=== PATIENT | female | born 1990 | race Caucasian/White ===

== ENCOUNTER 2023-01-22 11:19 | Inpatient (IN) | payer OTHER ==
[~2023-01-22] VITALS: Ht 160 cm; Wt 75.0 kg
[~2023-01-22 11:19] MED LIST: ACETAMINOPHEN/ISO-OSM 1000 MG/100 ML BOTTLE IV ONE; BUPIVACAINE HCL/PF 0.5% 30 ML VIAL ONE; EPINEPHrine 1:1,000 [1 MG/ML] VIAL ONE; ETHYL ALCOHOL 62% ANTISEPTIC NASAL SANITIZER 0.6 ML AMPUL NASAL ONE; LIDOCAINE/PF 1% 30 ML VIAL ONE; RINGERS SOLUTION,LACTATED 0 ML IV ONE; RINGERS SOLUTION,LACTATED 1,000 ML IV ONE; SUGAMMADEX SODIUM 200 MG/2 ML VIAL IVP ONE
[2023-01-22] MEDS ORDERED: CeFAZolin SODIUM 1 GM VIAL IVP ONE (12:00)
[2023-01-22] MEDS ORDERED: FentaNYL CITRATE PF 100 MCG/2 ML VIAL IVP ONE (12:00)
[2023-01-22] MEDS ORDERED: NALOXONE HCL 0.4 MG/ML VIAL IVP ONE (12:00)
[2023-01-22] MEDS ORDERED: ROCURONIUM BROMIDE 10 MG/ML 5 ML VIAL IVP ONE (12:00)
[2023-01-22] MEDS ORDERED: METOCLOPRAMIDE HCL 5 MG/ML 2 ML VIAL IVP ONE (12:00)
[2023-01-22] MEDS ORDERED: LIDOCAINE/PF 2% 5 ML SYRINGE IVP ONE (12:00)
[2023-01-22] MEDS ORDERED: ONDANSETRON HCL 4 MG/2 ML VIAL IVP ONE (12:00)
[2023-01-22] MEDS ORDERED: PROPOFOL 1% 20 ML VIAL IVP ONE (12:00)
[2023-01-22] MEDS ORDERED: MIDAZOLAM HCL 2 MG/2 ML VIAL IVP ONE (12:00)
[2023-01-22] MEDS ORDERED: KETOROLAC TROMETHAMINE 60 MG/2 ML VIAL IM ONE (12:00)
[2023-01-22] MEDS ORDERED: RINGERS SOLUTION,LACTATED 1,000 ML IV ONE ×2 (12:19→14:02)
[2023-01-22] MEDS ORDERED: CHLORHEXIDINE GLUCONATE 2% TOWELETTE [2'S/6'S] TP ONE (13:30)
[2023-01-22] MEDS ORDERED: BUPIVACAINE HCL/PF 0.25% 30 ML VIAL ONE (14:04)
[2023-01-22] MEDS ORDERED: BUPIVACAINE LIPOSOME/PF 1.3%-13.3MG/ML SUSPENSION 20 ML VIAL INJ ONE (14:15)
[2023-01-22] MEDS ORDERED: FentaNYL CITRATE PF 100 MCG/2 ML VIAL IVP PRN (17:45)
[2023-01-22] MEDS ORDERED: HYDROmorphone HCL 2 MG/ML SYRINGE IVP PRN (17:45)
[2023-01-22] MEDS ORDERED: MEPERIDINE-PF 25 MG/ML VIAL IVP PRN (17:45)
[2023-01-22] MEDS ORDERED: HYDROmorphone HCL 2 MG/ML SYRINGE ONE (17:55)
[2023-01-22] MEDS: OXYGEN THERAPY IH SCH (20:00)
[2023-01-22 21:49] VITALS: BP 121/66; PULSE 86; RESP 18; TEMP 98.1
[2023-01-22] MEDS ORDERED: CeFAZolin 2 GM/DEXTROSE 50 ML IV SCH (22:00)
[2023-01-22] MEDS ORDERED: CHLORHEXIDINE GLUCONATE 2% TOWELETTE [2'S/6'S] TP SCH (22:00)
[2023-01-22] MEDS: HYDROmorphone HCL 2 MG/ML SYRINGE IVP PRN (22:21)
[2023-01-22] MEDS ORDERED: SODIUM CHLORIDE 0.9% 250 ML IV ONE (22:37)
[2023-01-23 00:56] VITALS: BP 109/60; PULSE 109; RESP 18; TEMP 97.5
[2023-01-23] MEDS: HYDROmorphone HCL 2 MG/ML SYRINGE IVP PRN ×4 (03:08→17:58)
[2023-01-23 04:25] VITALS: BP 110/53; PULSE 96; RESP 19; TEMP 97.9
[2023-01-23 08:00] VITALS: BP 114/54; PULSE 90; RESP 18; TEMP 98
[2023-01-23] MEDS: OXYGEN THERAPY IH SCH ×2 (08:00→20:00)
[2023-01-23] MEDS: ASPIRIN 81 MG CHEWABLE TABLET PO SCH (09:13)
[2023-01-23 11:06] VITALS: BP 111/69; PULSE 86; RESP 18; TEMP 98
[2023-01-23] MEDS ORDERED: ACETAMINOPHEN 325 MG TABLET PO PRN (19:00)
[2023-01-23 19:51] VITALS: BP 115/60; PULSE 88; RESP 18; TEMP 98.7
[2023-01-23] MEDS: HYDROCODONE/ACETAMINOPHEN 10-325 MG TABLET PO PRN (21:41)
[2023-01-23 23:21] VITALS: BP 106/52; PULSE 92; RESP 18; TEMP 98.1
[2023-01-24] MEDS: HYDROCODONE/ACETAMINOPHEN 10-325 MG TABLET PO PRN ×4 (03:18→17:51)
[2023-01-24 04:08] VITALS: BP 103/56; PULSE 78; RESP 18; TEMP 98.6
[2023-01-24] MEDS: ASPIRIN 81 MG CHEWABLE TABLET PO SCH (07:58)
[2023-01-24] MEDS: OXYGEN THERAPY IH SCH ×2 (07:59→20:00)
[2023-01-24 10:12] VITALS: BP 106/76; PULSE 81; RESP 18; TEMP 98.5
[2023-01-24] MEDS ORDERED: OxyCODONE HCL/ACETAMINOPHEN 5-325 MG TABLET PO ONE (11:15)
[2023-01-24 12:08] LABS: BASOPHILS % (AUTO) 0.7 % (0.0-2.0); EOSINOPHILS % (AUTO) 1.7 % (1.0-6.0); HEMATOCRIT 30.1 % (36-46); LYMPHOCYTES # (AUTO) 2.3 K/uL (1.0-4.8); LYMPHOCYTES % (AUTO) 35.8 % (22.0-44.0); MEAN CORPUSCULAR HEMOGLOBIN 27.9 pg (26.0-34.0); MEAN CORPUSCULAR HGB CONC 33.2 G/dL (31.0-37.0); MEAN CORPUSCULAR VOLUME 84 fL (80-100); MONOCYTES # (AUTO) 0.5 K/uL (0.1-1.0); MONOCYTES % (AUTO) 7.3 % (2.0-9.0); NEUTROPHILS # (AUTO) 3.4 K/uL (1.8-7.7); NEUTROPHILS % (AUTO) 54.5 % (40.0-70.0); PLATELET COUNT (AUTO) 221 K/uL (150-450); RED BLOOD CELL COUNT(AUTO) 3.58 MIL/uL (4.00-5.20); RED CELL DISTRIBUTION WIDTH 15.3 % (11.5-14.5); WHITE BLOOD COUNT (AUTO) 6.3 K/uL (4.5-11.0)
[2023-01-24 12:15] LABS: ANION GAP 4 mmol/L (8-16); CALCIUM, TOTAL 8.3 mg/dL (8.8-10.5); CARBON DIOXIDE 29 mmol/L (22-29); CHLORIDE 106 mmol/L (98-107); CREATININE 0.52 mg/dL (0.60-1.30); GLOMERULAR FILTR. RATE CALC > 60 mL/min (>60); GLUCOSE,RANDOM 91 mg/dL (70-110); POTASSIUM 3.8 mmol/L (3.5-5.1); SODIUM SERUM 139 mmol/L (136-145); UREA NITROGEN, BLOOD 7 mg/dL (7-18)
[2023-01-24 12:21] LABS: ALANINE AMINOTRANSFERASE 15 U/L (12-78); ALBUMIN 2.8 g/dL (3.4-5.0); ALKALINE PHOSPHATASE 52 U/L (46-116); ASPARTATE AMINOTRANSFERASE 16 U/L (15-37); BILIRUBIN,TOTAL 0.3 mg/dL (0.1-1.0); TOTAL PROTEIN, SERUM 6.4 g/dL (6.4-8.2)
[2023-01-24 13:27] VITALS: BP 105/58; PULSE 85; RESP 18; TEMP 98.1
[2023-01-24 16:47] VITALS: BP 104/45; PULSE 95; RESP 18; TEMP 98.1
[2023-01-24 18:22] VITALS: BP 118/68; PULSE 82; RESP 19; TEMP 98.4
[2023-01-24 19:44] VITALS: BP 102/65; PULSE 86; RESP 18; TEMP 98.9
[2023-01-24] MEDS ORDERED: DEXAMETHASONE SOD PHOS 10 MG/ML VIAL IVP ONE (20:00)
[2023-01-24] MEDS: GABAPENTIN 300 MG CAPSULE PO SCH (20:44)
[2023-01-25 03:37] VITALS: BP 117/71; PULSE 97; RESP 20; TEMP 97.7
[2023-01-25] MEDS: HYDROCODONE/ACETAMINOPHEN 10-325 MG TABLET PO PRN ×5 (03:41→20:38)
[2023-01-25] MEDS: OXYGEN THERAPY IH SCH ×2 (08:00→20:00)
[2023-01-25 09:01] VITALS: BP 106/62; PULSE 98; RESP 20
[2023-01-25] MEDS: GABAPENTIN 300 MG CAPSULE PO SCH ×2 (09:03→20:38)
[2023-01-25] MEDS: ASPIRIN 81 MG CHEWABLE TABLET PO SCH (09:04)
[2023-01-25 15:57] VITALS: BP 98/68; PULSE 104; RESP 20; TEMP 98.1
[2023-01-25 17:25] VITALS: BP 107/62; RESP 20
[2023-01-25 20:44] VITALS: BP 109/64; PULSE 97; RESP 19; TEMP 98.1
[2023-01-26] MEDS: HYDROCODONE/ACETAMINOPHEN 10-325 MG TABLET PO PRN ×4 (01:03→18:40)
[2023-01-26 03:41] VITALS: BP 105/60; PULSE 80; RESP 18; TEMP 97.6
[2023-01-26] MEDS: GABAPENTIN 300 MG CAPSULE PO SCH (08:32)
[2023-01-26] MEDS: ASPIRIN 81 MG CHEWABLE TABLET PO SCH (08:33)
[2023-01-26 09:17] VITALS: BP 86/42; PULSE 91; RESP 18; TEMP 98.6
[2023-01-26] MEDS ORDERED: SODIUM CHLORIDE 0.9% 250 ML IV SCH (10:45)
[2023-01-26 16:01] VITALS: BP 108/77; PULSE 90; RESP 18; TEMP 98.5
== END 2023-01-26 18:42 | DRG 481 ==
LOC: SURGERY 11:19 → 5S 19:00 → 6S 01-24 18:15
PROVIDERS: ADMIT Hospitalist; ATTEND Hospitalist
PROC: 0QQ54ZZ Repair Left Acetabulum, Percutaneous Endoscopic Approach (ICD-10-PCS; 2023-01-22)
PROC: 0SQB4ZZ Repair Left Hip Joint, Percutaneous Endoscopic Approach (ICD-10-PCS; principal; 2023-01-22 13:55)
DX: S73.102A Unspecified sprain of left hip, initial encounter (principal); E44.0 Moderate protein-calorie malnutrition; M70.62 Trochanteric bursitis, left hip; Z79.899 Other long term (current) drug therapy; X58.XXXA Exposure to other specified factors, initial encounter; Y93.89 Activity, other specified; Y92.89 Other specified places as the place of occurrence of the external cause; Y99.8 Other external cause status
CPT/HCPCS: 80053; 84703; 85025; 87081; 97110; 97116; 97161; 97166; 97530; 97535; C9290; J0131; J0171; J0690; J1100; J1170; J1885; J2250; J2310; J2405; J2704; J2765; J3010; J3490; J7030; J7050; J7120; Q9967

== ENCOUNTER 2023-01-26 18:42 | Inpatient (IN) | payer OTHER ==
[~2023-01-26] VITALS: Ht 160 cm; Wt 79.4 kg
[2023-01-26 19:05] VITALS: BP 124/82; PULSE 87; RESP 18; TEMP 98.8; O2SAT 100
[2023-01-26 20:00] VITALS: O2SAT 100
[2023-01-26] MEDS ORDERED: LACTULOSE 20 GM/30 ML SOLUTION UDCUP PO PRN (20:00)
[2023-01-26] MEDS ORDERED: ACETAMINOPHEN 650 MG/20.3 ML SOLUTION UDCUP PO PRN (20:00)
[2023-01-26] MEDS ORDERED: ACETAMINOPHEN 325 MG TABLET PO PRN ×2 (20:00→23:30)
[2023-01-26] MEDS ORDERED: ACETAMINOPHEN 500 MG TABLET PO PRN (20:15)
[2023-01-26] MEDS: DOCUSATE SODIUM 250 MG CAPSULE PO SCH (21:15)
[2023-01-26] MEDS: SENNOSIDES 8.6 MG TABLET PO SCH (21:16)
[2023-01-26] MEDS: GABAPENTIN 300 MG CAPSULE PO SCH (21:17)
[2023-01-26] MEDS: MELATONIN 3 MG TABLET PO PRN (21:18)
[2023-01-26] MEDS: ETHYL ALCOHOL 62% ANTISEPTIC NASAL SANITIZER 0.6 ML AMPUL NASAL SCH (22:13)
[2023-01-27] MEDS ORDERED: INFLUENZA VIRUS VACCINE QVS 2023-24 (6MO+)/PF 60 MCG/0.5 ML SYRINGE IM. ONE (02:30)
[2023-01-27] MEDS: HYDROCODONE/ACETAMINOPHEN 10-325 MG TABLET PO PRN ×3 (06:46→19:42)
[2023-01-27] MEDS: DOCUSATE SODIUM 283 MG/5 ML MINI-ENEMA PR SCH (06:49)
[2023-01-27] MEDS ORDERED: ACETAMINOPHEN 500 MG TABLET PO PRN (07:30)
[2023-01-27 07:39] LABS: BASOPHILS % (AUTO) 0.9 % (0.0-2.0); EOSINOPHILS % (AUTO) 3.3 % (1.0-6.0); HEMATOCRIT 32.1 % (36-46); HEMOGLOBIN 10.5 g/dL (12.0-16.0); LYMPHOCYTES # (AUTO) 3.1 K/uL (1.0-4.8); LYMPHOCYTES % (AUTO) 49.6 % (22.0-44.0); MEAN CORPUSCULAR HEMOGLOBIN 27.4 pg (26.0-34.0); MEAN CORPUSCULAR HGB CONC 32.8 G/dL (31.0-37.0); MEAN CORPUSCULAR VOLUME 84 fL (80-100); MONOCYTES # (AUTO) 0.4 K/uL (0.1-1.0); MONOCYTES % (AUTO) 6.7 % (2.0-9.0); NEUTROPHILS # (AUTO) 2.5 K/uL (1.8-7.7); NEUTROPHILS % (AUTO) 39.5 % (40.0-70.0); PLATELET COUNT (AUTO) 241 K/uL (150-450); RED BLOOD CELL COUNT(AUTO) 3.83 MIL/uL (4.00-5.20); WHITE BLOOD COUNT (AUTO) 6.3 K/uL (4.5-11.0)
[2023-01-27 08:13] LABS: ALANINE AMINOTRANSFERASE 19 U/L (12-78); ALKALINE PHOSPHATASE 56 U/L (46-116); ANION GAP 7 mmol/L (8-16); ASPARTATE AMINOTRANSFERASE 19 U/L (15-37); BILIRUBIN,TOTAL 0.4 mg/dL (0.1-1.0); CALCIUM, TOTAL 8.5 mg/dL (8.8-10.5); CARBON DIOXIDE 28 mmol/L (22-29); CHLORIDE 103 mmol/L (98-107); CREATININE 0.52 mg/dL (0.60-1.30); GLOMERULAR FILTR. RATE CALC > 60 mL/min (>60); GLUCOSE,RANDOM 96 mg/dL (70-110); POTASSIUM 4.1 mmol/L (3.5-5.1); SODIUM SERUM 138 mmol/L (136-145); TOTAL PROTEIN, SERUM 6.6 g/dL (6.4-8.2); UREA NITROGEN, BLOOD 10 mg/dL (7-18)
[2023-01-27] MEDS: ETHYL ALCOHOL 62% ANTISEPTIC NASAL SANITIZER 0.6 ML AMPUL NASAL SCH ×2 (08:25→20:35)
[2023-01-27] MEDS: GABAPENTIN 300 MG CAPSULE PO SCH ×2 (08:25→20:35)
[2023-01-27] MEDS: DOCUSATE SODIUM 250 MG CAPSULE PO SCH ×2 (08:25→20:35)
[2023-01-27] MEDS: ASPIRIN 81 MG CHEWABLE TABLET PO SCH (08:25)
[2023-01-27 10:02] VITALS: BP 107/64; PULSE 88; RESP 18; TEMP 97.7; O2SAT 99
[2023-01-27 11:46] VITALS: O2SAT 99
[2023-01-27 12:10] VITALS: RESP 18
[2023-01-27 19:42] VITALS: BP 109/62; PULSE 80; RESP 18; TEMP 98.5; O2SAT 100
[2023-01-27 20:00] VITALS: O2SAT 100
[2023-01-27] MEDS: MELATONIN 3 MG TABLET PO PRN (20:35)
[2023-01-27] MEDS: SENNOSIDES 8.6 MG TABLET PO SCH (20:35)
[2023-01-28] MEDS: DOCUSATE SODIUM 283 MG/5 ML MINI-ENEMA PR SCH (06:15)
[2023-01-28] MEDS: HYDROCODONE/ACETAMINOPHEN 10-325 MG TABLET PO PRN ×2 (06:15→13:31)
[2023-01-28 08:05] VITALS: BP 107/65; PULSE 76; RESP 18; TEMP 98.1; O2SAT 99
[2023-01-28] MEDS: ETHYL ALCOHOL 62% ANTISEPTIC NASAL SANITIZER 0.6 ML AMPUL NASAL SCH ×2 (08:16→21:50)
[2023-01-28] MEDS: ASPIRIN 81 MG CHEWABLE TABLET PO SCH (08:16)
[2023-01-28] MEDS: GABAPENTIN 300 MG CAPSULE PO SCH ×2 (08:17→21:50)
[2023-01-28] MEDS: DOCUSATE SODIUM 250 MG CAPSULE PO SCH ×2 (08:17→21:50)
[2023-01-28 10:26] VITALS: O2SAT 98
[2023-01-28 20:00] VITALS: BP 107/59; PULSE 89; RESP 19; TEMP 98.4; O2SAT 98
[2023-01-28] MEDS: MELATONIN 3 MG TABLET PO PRN (21:50)
[2023-01-28] MEDS: SENNOSIDES 8.6 MG TABLET PO SCH (21:50)
[2023-01-28 22:08] VITALS: O2SAT 98
[2023-01-29] MEDS: HYDROCODONE/ACETAMINOPHEN 10-325 MG TABLET PO PRN ×2 (05:31→17:09)
[2023-01-29] MEDS: DOCUSATE SODIUM 283 MG/5 ML MINI-ENEMA PR SCH (05:32)
[2023-01-29] MEDS: DOCUSATE SODIUM 250 MG CAPSULE PO SCH ×2 (07:58→20:22)
[2023-01-29] MEDS: ETHYL ALCOHOL 62% ANTISEPTIC NASAL SANITIZER 0.6 ML AMPUL NASAL SCH ×2 (07:58→20:22)
[2023-01-29] MEDS: GABAPENTIN 300 MG CAPSULE PO SCH ×2 (07:58→20:22)
[2023-01-29] MEDS: ASPIRIN 81 MG CHEWABLE TABLET PO SCH (07:59)
[2023-01-29 08:20] VITALS: BP 101/58; PULSE 83; RESP 18; TEMP 97.9; O2SAT 99
[2023-01-29 11:15] VITALS: O2SAT 99
[2023-01-29 17:09] VITALS: RESP 18
[2023-01-29] MEDS: SENNOSIDES 8.6 MG TABLET PO SCH (20:23)
[2023-01-29] MEDS: MELATONIN 3 MG TABLET PO PRN (20:23)
[2023-01-29 20:30] VITALS: BP 111/68; PULSE 87; RESP 18; TEMP 98.7; O2SAT 99
[2023-01-29 22:19] VITALS: O2SAT 98
[2023-01-30 05:31] VITALS: BP 113/71; PULSE 86
[2023-01-30] MEDS: HYDROCODONE/ACETAMINOPHEN 10-325 MG TABLET PO PRN (05:31)
[2023-01-30] MEDS: ETHYL ALCOHOL 62% ANTISEPTIC NASAL SANITIZER 0.6 ML AMPUL NASAL SCH ×2 (07:43→20:15)
[2023-01-30] MEDS: GABAPENTIN 300 MG CAPSULE PO SCH ×2 (07:43→20:15)
[2023-01-30] MEDS: DOCUSATE SODIUM 250 MG CAPSULE PO SCH ×2 (07:43→20:15)
[2023-01-30] MEDS: ASPIRIN 81 MG CHEWABLE TABLET PO SCH (07:44)
[2023-01-30 09:00] VITALS: BP 113/73; PULSE 84; RESP 18; TEMP 98.2; O2SAT 100
[2023-01-30] MEDS: HYDROCODONE/ACETAMINOPHEN 5-325 MG TABLET PO PRN ×2 (11:29→21:38)
[2023-01-30 11:54] VITALS: O2SAT 100
[2023-01-30 20:01] VITALS: BP 110/59; PULSE 89; RESP 18; TEMP 98.1; O2SAT 98
[2023-01-30] MEDS: SENNOSIDES 8.6 MG TABLET PO SCH (20:15)
[2023-01-30] MEDS: MELATONIN 3 MG TABLET PO PRN (20:15)
[2023-01-30 20:23] VITALS: O2SAT 98
[2023-01-31] MEDS ORDERED: ASPI-1450 PO ×2 (01:03→10:05)
[2023-01-31] MEDS ORDERED: DOCU-412 PO ×2 (01:03→10:05)
[2023-01-31] MEDS ORDERED: HYDR-4723 PO ×2 (01:03→10:05)
[2023-01-31] MEDS ORDERED: GABA-1181 PO ×2 (01:03→10:05)
[2023-01-31] MEDS: HYDROCODONE/ACETAMINOPHEN 5-325 MG TABLET PO PRN ×2 (04:37→10:59)
[2023-01-31 08:30] VITALS: BP 108/62; PULSE 87; RESP 18; TEMP 98.1; O2SAT 100
[2023-01-31 09:00] VITALS: BP 108/62; PULSE 108; RESP 18; TEMP 98.1; O2SAT 100
[2023-01-31] MEDS: ASPIRIN 81 MG CHEWABLE TABLET PO SCH (09:06)
[2023-01-31] MEDS: DOCUSATE SODIUM 250 MG CAPSULE PO SCH (09:06)
[2023-01-31] MEDS: GABAPENTIN 300 MG CAPSULE PO SCH (09:06)
[2023-01-31] MEDS: ETHYL ALCOHOL 62% ANTISEPTIC NASAL SANITIZER 0.6 ML AMPUL NASAL SCH (09:06)
[2023-01-31] MEDS ORDERED: SENN-277 PO (10:05)
[2023-01-31 11:42] VITALS: O2SAT 100
[2023-01-31 11:43] VITALS: O2SAT 100
== END 2023-01-31 11:30 | disposition home or self-care (01) | DRG 556 ==
LOC: 2WR 19:00
PROVIDERS: ADMIT Physical Medicine & Rehabilitation; ATTEND Physical Medicine & Rehabilitation
DX: M25.552 Pain in left hip (principal); E46 Unspecified protein-calorie malnutrition; M48.54XA Collapsed vertebra, not elsewhere classified, thoracic region, initial encounter for fracture; D64.9 Anemia, unspecified; K59.03 Drug induced constipation; K59.09 Other constipation; T40.2X5A Adverse effect of other opioids, initial encounter; R26.9 Unspecified abnormalities of gait and mobility; M54.9 Dorsalgia, unspecified; R20.0 Anesthesia of skin; Y92.89 Other specified places as the place of occurrence of the external cause; Z79.899 Other long term (current) drug therapy; Z68.31 Body mass index [BMI] 31.0-31.9, adult
CPT/HCPCS: 80053; 85025; 87081; 97110; 97116; 97163; 97167; 97530; 97535